=== PATIENT | female | born 1990 | race Two or more races ===

== ENCOUNTER 2021-04-10 23:03 | Emergency (ER) | payer OTHER ==
[~2021-04-10] VITALS: Ht 157.5 cm; Wt 75.3 kg
[2021-04-11] MEDS ORDERED: KETO10TA2 PO (04:38)
[2021-04-14] MEDS ORDERED: ACETAMINOPHEN650 M2 (09:51)
== END 2021-04-11 04:46 | disposition home or self-care (01) ==
LOC: ER 23:03
DX: R10.32 Left lower quadrant pain (principal)